=== PATIENT | male | born 1965 ===

== ENCOUNTER 2019-03-09 13:49 | Outpatient (CLI) | payer OTHER ==
[~2019-03-09] VITALS: Ht 170.2 cm; Wt 66.7 kg
== END 2019-03-09 14:10 | disposition home or self-care (01) ==
LOC: OFIC 805 13:49
DX: J34.89 Other specified disorders of nose and nasal sinuses (principal); R09.81 Nasal congestion; J34.2 Deviated nasal septum

== ENCOUNTER 2019-12-07 13:41 | Emergency (ER) | payer OTHER ==
[~2019-12-07] VITALS: Ht 170.2 cm; Wt 67.1 kg
[2019-12-07] MEDS ORDERED: ACID REDUCER20 M1 PO (14:10)
[2019-12-07] MEDS ORDERED: PEPCID AC20 MG PO (14:10)
== END 2019-12-07 16:35 | disposition home or self-care (01) ==
LOC: ER 13:41
DX: E86.0 Dehydration (principal); R42 Dizziness and giddiness

== ENCOUNTER 2025-03-03 10:36 | Outpatient (CLI) | payer OTHER ==
[~2025-03-03 10:36] MED LIST: ACID REDUCER20 M1 PO; PEPCID AC20 MG PO
== END 2025-03-03 10:43 | disposition home or self-care (01) ==
LOC: SONOGRAMA 10:36
PROVIDERS: ATTEND Internal Medicine Gastroenterology
DX: R10.9 Unspecified abdominal pain (principal)